=== PATIENT | female | born 1955 | race Caucasian/White ===

== ENCOUNTER 2024-08-02 07:43 | Day surgery (SDC) | payer MEDICARE, BC, OTHER ==
[~2024-08-02] VITALS: Ht 170.2 cm; Wt 54.0 kg
[~2024-08-02 07:43] MED LIST: ALEN70TA82 PO; CALC1TAB19 PO; LEVO25TA5 PO; NS 250 ML IV ONE; ROSU5TAB40 PO
[2024-08-02] MEDS ORDERED: propofoL 200 MG/20 ML VIAL As Ordered ONE (08:27)
[2024-08-02 08:51] VITALS: TEMP 96.7
[2024-08-02 09:08] VITALS: BP 107/66; O2SAT 97
== END 2024-08-02 09:23 | disposition home or self-care (01) ==
LOC: M OPP 07:43
PROVIDERS: ATTEND Internal Medicine Gastroenterology
DX: Z12.11 Encounter for screening for malignant neoplasm of colon (principal); Z12.12 Encounter for screening for malignant neoplasm of rectum; K57.30 Diverticulosis of large intestine without perforation or abscess without bleeding; K64.8 Other hemorrhoids; E03.9 Hypothyroidism, unspecified; E78.00 Pure hypercholesterolemia, unspecified; Z79.890 Hormone replacement therapy; Z79.899 Other long term (current) drug therapy; Z90.89 Acquired absence of other organs